=== PATIENT | female | born 1995 | race Caucasian/White ===

== ENCOUNTER 2017-05-11 11:57 | Emergency (ER) | payer OTHER ==
[2017-05-11 12:28] VITALS: BP 110/66; PULSE 87; TEMP 97.7; BMI 24.6
--- NOTE | 2017-05-11 13:10 | PDOC ---
History of Present Illness - General Chief Complaint: Pain Stated Complaint: ABDOMINAL PAIN Time Seen by Provider: 05/11/17 12:41 History Source: Patient Exam Limitations: No Limitations - History of Present Illness Initial Comments: 05/11/17 13:05 Patient here with complaints of lower abdominal pain, feelings of nauseousness, and wondering if she could potentially be . Denies dysuria, denies any bowel changes, denies any vaginal drainage or discharge. Occurred: reports: last week Severity: reports: mild Pain Location: reports: none, abdomen Modifying Factors: improves with: None Past History - Travel Traveled outside of the country in the last 30 days: No Close contact w/someone who was outside of country & ill: No - Past Medical History Allergies/Adverse Reactions: Allergies Allergy/AdvReac Type Severity Reaction Status Date / Time No Known Allergies Allergy Verified 05/11/17 12:24 Home Medications: Ambulatory Orders NK [No Known Home Medication] 05/11/17 Asthma: Yes Cancer: No Cardiac Disorders: No COPD: No Diabetes: No HTN: No Seizures: Yes (last seizure 2011) Thyroid Disease: No - Surgical History Appendectomy: Yes - Reproductive History (#): 4 Para: 1 Therapeutic (s) & number: Yes Spontaneous : 1 - Immunization History Immunization Up to Date: Yes - Suicide/Smoking/Psychosocial Hx Smoking History: Current every day smoker Have you smoked in the past 12 months: Yes Number of Cigarettes Smoked Daily: 3 If you are a former smoker, when did you quit?: 9 months ago Cigars Per Day: 0 Information on smoking cessation initiated: No Hx Alcohol Use: No Drug/Substance Use Hx: No Hx Substance Use Treatment: No Review of Systems - Review of Systems Able to Perform ROS?: Yes Is the patient limited Welsh proficient: Yes Constitutional: Yes: Symptoms Reported, See HPI, Malaise. No: Fever, Loss of Appetite HEENTM: No: Symptoms Reported Respiratory: Yes: See HPI. No: Symptoms reported Cardiac (ROS): No: Symptoms Reported ABD/GI: Yes: Symptoms Reported. No: Nausea Musculoskeletal: No: Symptoms Reported Integumentary: No: Symptoms Reported All Other Systems: Reviewed and Negative *Physical Exam - Vital Signs Last Vital Signs Temp Pulse Resp BP Pulse Ox 97.7 F 87 18 110/66 100 05/11/17 12:24 05/11/17 12:24 05/11/17 12:24 05/11/17 12:24 05/11/17 12:24 - Physical Exam General Appearance: Yes: Nourished, Appropriately Dressed. No: Apparent Distress, Mild Distress HEENT: positive: KACY, Normal ENT Inspection, TMs Normal, Pharynx Normal Neck: positive: Supple. negative: Tender Respiratory/Chest: positive: Lungs Clear Gastrointestinal/Abdominal: positive: Normal Bowel Sounds, Soft. negative: Tender, Distended, Guarding, Rebound, Tenderness Extremity: negative: Normal Capillary Refill Integumentary: positive: Normal Color, Dry, Warm, Pale Neurologic: positive: supervisory clerk II-XII NML intact, Fully Oriented, Alert, Normal Mood/ Affect, Normal Response, Motor Strength 5/5 *DC/Admit/Observation/Transfer Diagnosis at time of Disposition: Well adult health check - Discharge Dispostion Disposition: HOME Condition at time of disposition: Stable Admit: No - Referrals Referrals: Goldy Cortez MD [Primary Care Provider] - - Patient Instructions Additional Instructions: See DRIER AND EVAPORATOR OPERATOR doctor for discussion of control options - Post Discharge Activity Forms/Work/School Notes: Back to Work
[2017-05-11 13:25] LABS: HCG,QUALITATIVE URINE NEGATIVE; URINE APPEARANCE CLEAR; URINE BILIRUBIN NEGATIVE (NEGATIVE); URINE BLOOD NEGATIVE (NEGATIVE); URINE COLOR LTYELLOW; URINE GLUCOSE (UA) NEGATIVE (NEGATIVE); URINE KETONE NEGATIVE (NEGATIVE); URINE LEUK ESTERASE TRACE (NEGATIVE); URINE NITRITE NEGATIVE (NEGATIVE); URINE PROTEIN NEGATIVE (NEGATIVE)
[2017-05-11 13:30] LABS: EPI CELLS RARE /HPF (FEW); URINE BACTERIA RARE /hpf (NONE SEEN); URINE MUCUS FEW
== END 2017-05-11 14:30 | disposition home or self-care (01) ==
LOC: JERFT 11:57
DX: Z71.1 Person with feared health complaint in whom no diagnosis is made (principal); J45.909 Unspecified asthma, uncomplicated; Z86.69 Personal history of other diseases of the nervous system and sense organs; F17.210 Nicotine dependence, cigarettes, uncomplicated
CPT/HCPCS: 81003; 81015; 84703; 87086; 99281-25

== ENCOUNTER 2019-11-20 08:28 | Inpatient (IN) | payer OTHER ==
[2019-11-20] MEDS ORDERED: ELECTROLYTE-148 SOLN 1,000 ML IV SCH (09:15)
[2019-11-20] MEDS ORDERED: BENZOCAINE 28 GM HEMORRHOIDAL OINTMENT PR PRN (09:21)
[2019-11-20] MEDS ORDERED: BENZOCAINE 20% 57 GM BOTTLE TP PRN (09:21)
[2019-11-20] MEDS ORDERED: diphenhydrAMINE HCL 25 MG CAPSULE (FP) PO PRN (09:21)
[2019-11-20] MEDS ORDERED: METHYLERGONOVINE MALEATE 0.2 MG/1 ML AMP IM PRN (09:21)
[2019-11-20] MEDS ORDERED: IBUPROFEN 800 MG/8 ML IJ IVPB PRN (09:21)
[2019-11-20] MEDS ORDERED: WITCH HAZEL 50% (TUCKS) 40 PAD/JAR PAD TP PRN (09:21)
--- NOTE | 2019-11-20 09:25 | HP ---
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 Pulmonary: Yes: Asthma ...: 5 ...Para: 2 ...EDC by Dates: 11/25/19 - Past Surgical History Past Surgical History: Yes: Appendectomy, Hx Myomectomy: No Hx Transabdominal Cerclage: No - Smoking History Smoking history: Current every day smoker Have you smoked in the past 12 months: Yes Aproximately how many cigarettes per day: 3 If you are a former smoker, when did you quit?: 9 months ago - Alcohol/Substance Use Hx Alcohol Use: No History of Substance Use: reports: None - Social History Usual Living Arrangement: Yes: With Spouse History of Recent Travel: No Home Medications - Allergies Allergies/Adverse Reactions: Allergies Allergy/AdvReac Type Severity Reaction Status Date / Time No Known Allergies Allergy Verified 05/11/17 12:24 - Home Medications Home Medications: Ambulatory Orders Pnv 29-1 Tablet 1 tab PO DAILY 10/02/19 Physical Exam - Maternity Constitutional: Yes: Well Nourished Eyes: Yes: WNL HENT: Yes: WNL Neck: Yes: WNL Cardiovascular: Yes: WNL Lungs: Normal air movement (h/o asthma) - Abdominal Exam/OB Contractions: Yes Regularity: Regular Intensity: Moderate Monitor Mode: External Category: I Accelerations: Uniform Decelerations: None - Vaginal Exam/OB Dilatation (cm): 2 cm Amniotic Membrane Status: Intact Meconium: Light Station: -1 - Physical Exam Edema: No Problem List - Problems (1) Asthma Code(s): J45.909 - UNSPECIFIED ASTHMA, UNCOMPLICATED Qualifiers: Asthma severity: mild Asthma persistence: unspecified (2) 39 weeks gestation of Code(s): Z3A.39 - 39 WEEKS GESTATION OF Assessment/Plan previos c section at 39 weeks ,chaim; for repeat c section
[2019-11-20] MEDS ORDERED: OXYTOCIN 20 UNITS in 0.9% NS 20 UNIT/1,000 ML INFUS.BAG IV SCH (09:45)
[2019-11-20 09:46] LABS: BASO % 0.4 % (0-2.0); EOS % 0.7 % (0-4.5); HEMOGLOBIN 11.7 GM/dL (10.7-15.3); LYMPH % 25.1 % (8-40); MCH 32.6 pg (25.7-33.7); MCHC 33.5 g/dl (32.0-36.0); MEAN CELL VOLUME 97.2 fl (80-96); MEAN PLT VOLUME 8.1 fl (7.5-11.1); MONO % 8.6 % (3.8-10.2); NEUT % 65.2 % (42.8-82.8); PLATELET COUNT 258 K/MM3 (134-434); RDW 13.2 % (11.6-15.6); WHITE BLOOD COUNT 7.7 K/mm3 (4.0-10.0)
[2019-11-20 09:52] LABS: INR 0.95 (0.83-1.09); PROTHROMBIN TIME (PATIENT) 11.2 SEC (9.7-13.0)
[2019-11-20 09:55] LABS: ACTIVATED PTT 27.6 SECONDS (25.2-36.5)
[2019-11-20 09:59] VITALS: BMI 28.7
[2019-11-20] MEDS ORDERED: morphine SULFATE/PF 0.5 MG/ML (2cc Syringe - QUVA) EP ONE (10:04)
[2019-11-20] MEDS ORDERED: ONDANSETRON 4 MG/2 ML VIAL IVPUSH PRN (10:04)
[2019-11-20] MEDS ORDERED: ceFAZolin SODIUM 1 GM VIAL ONE (10:12)
[2019-11-20 10:13] LABS: BLOOD UREA NITROGEN 6.1 mg/dL (7-18); CALCIUM 8.6 mg/dL (8.5-10.1); CREATININE 0.4 mg/dL (0.55-1.3); POTASSIUM 3.8 mmol/L (3.5-5.1)
[2019-11-20] MEDS ORDERED: PHENYLEPHRINE HCL 10 MG/1 ML SINGLE DOSE VIAL ONE (10:30)
[2019-11-20] MEDS ORDERED: OXYTOCIN 10 UNITS/ML VIAL ONE (10:30)
--- NOTE | 2019-11-20 11:21 | OP ---
Operative Note - Note: Operative Date: 11/20/19 Pre-Operative Diagnosis: previous c section x 2 in labor Operation: repeat c section Findings: live baby girl; OA position; = 9-9; OVARIES AND TUBES WNL; WINDOW Post-Operative Diagnosis: Same as Pre-op Mother Repairer: Vicente Mcdonnell Anesthesia: Spinal Estimated Blood Loss (mls): 700 Operative Report Dictated: Yes
[2019-11-20] MEDS ORDERED: OXYTOCIN 20 UNITS in 0.9% NS 20 UNIT/1,000 ML INFUS.BAG IV ONE (11:27)
--- NOTE | 2019-11-20 15:26 | OP ---
DATE OF OPERATION: 11/20/2019 This patient is a 24-year-old 5, para 2, sections x2, at 39 weeks' gestation, in labor. PREOPERATIVE DIAGNOSIS: Intrauterine at term, previous section, in labor. POSTOPERATIVE DIAGNOSIS: Intrauterine at term, previous section, in labor. PROCEDURE: Repeat section through a previous Pfannenstiel incision. SURGEON: Khloe Pastrana MD SUPERVISING EDITOR NEWS REEL: YURY Rodas ANESTHESIA: Spinal by anesthesiologist. FINDINGS: Live baby girl in the occiput transverse position. Apgars 9, 9. Amniotic fluid was clear. Ovaries and fallopian tubes were within normal limits. ESTIMATED BLOOD LOSS: Was about 500 mL. DESCRIPTION OF PROCEDURE: The patient was taken to the operating room, was prepped and draped in the usual sterile fashion after a good level of spinal anesthesia was obtained. A Bowles catheter had been introduced into the bladder and was draining clear urine throughout the procedure. With the first knife and through a previous Pfannenstiel incision, an incision was made, and this incision was taken down through subcutaneous tissue into the fascia with the Bovie. The fascia was nicked in the midline, and this incision was extended laterally on both sides with the Bovie. The muscle was then from the fascia in the midline, both cephalad and caudad. The peritoneum was identified and entered under direct visualization, and this incision was extended cephalad and caudad. A lower angle retractor was then put in place to protect the bladder. It was noted that there was a large window in the lower uterine segment, then a low transverse incision was made in the lower uterine segments away from the window, and this incision was taken down into the uterine cavity. This incision was extended laterally on both sides. The amniotic bag was then ruptured of clear fluid, and the baby was then delivered from the occiput transverse position with fundal pressure atraumatically. The baby was suctioned. The umbilical cord was clamped and cut, and the baby was handed to the play therapist who assigned Apgars of 9 and 9. The placenta was then delivered manually. The uterus was then brought into the abdominal incision. The uterine cavity was then cleaned, with a clean lap pad, of residual membranes. The uterine incision was then closed, the first layer running locking suture of 0 Vicryl. Figure-of-8 was placed as a second layer. Hemostasis was checked, and it was satisfactory. The uterus was then repositioned into the pelvic cavity. The lateral gutters were suctioned of blood and fluid. Instrument count, sponge count, needle count was correct. The peritoneum was closed with chromic. The muscle was reapproximated with chromic. The fascia was closed with 0 Vicryl, and the skin was closed with 3-0 Vicryl. Steri-Strips were then applied. Sterile dressing was applied. Patient returned to recovery room in satisfactory condition. MD TAMI KNAPP/[id number]
[2019-11-20] MEDS: IBUPROFEN 600 MG TABLET (FP) PO PRN (20:39)
[2019-11-20] MEDS: ACETAMINOPHEN 325 MG TABLET (FP) PO PRN (20:40)
[2019-11-21] MEDS: IBUPROFEN 600 MG TABLET (FP) PO PRN ×5 (05:02→22:01)
[2019-11-21] MEDS: ACETAMINOPHEN 325 MG TABLET (FP) PO PRN ×3 (05:03→13:40)
[2019-11-21] MEDS: SIMETHICONE 80 MG TAB.CHEW (FP) PO PRN ×4 (08:36→22:05)
[2019-11-21 09:19] LABS: HEMATOCRIT 33.8 % (32.4-45.2); HEMOGLOBIN 11.5 GM/dL (10.7-15.3); MCH 33.3 pg (25.7-33.7); MCHC 33.9 g/dl (32.0-36.0); MEAN CELL VOLUME 98.2 fl (80-96); MEAN PLT VOLUME 8.4 fl (7.5-11.1); PLATELET COUNT 207 K/MM3 (134-434); RBC 3.44 M/mm3 (3.60-5.2); RDW 13.1 % (11.6-15.6); WHITE BLOOD COUNT 10.2 K/mm3 (4.0-10.0)
[2019-11-21] MEDS ORDERED: oxyCODONE HCL 5 MG TABLET PO PRN (09:21)
[2019-11-21] MEDS ORDERED: BISACODYL 10 MG SUPP.RECT PR PRN (09:22)
--- NOTE | 2019-11-21 12:00 | PN ---
Post Progress Note - Subjective Subjective: 24 yo Para 2 status post repeat , seen and evaluated. Doing well. Post Day: 1 Type of Delivery: Repeat C/S Vital Signs: Vital Signs Temperature 98.4 F 11/21/19 06:35 Pulse Rate 88 11/21/19 06:35 Respiratory Rate 20 11/21/19 06:35 Blood Pressure 104/72 11/21/19 06:35 O2 Sat by Pulse Oximetry (%) 99 11/20/19 23:46 Breast Exam: Yes: Soft Uterus: Yes: Fundus @ umbilicus Incision: Yes: Dressing dry and intact Abdomen/GI: Yes: Abdomen soft, Tolerating PO Lochia: Yes: Rubra Lochia, amount: Small Extremities: Yes: Calves non-tender Activity: Ambulating - Labs Labs: CBC WBC 10.2 K/mm3 (4.0-10.0) H 11/21/19 08:20 RBC 3.44 M/mm3 (3.60-5.2) L 11/21/19 08:20 Hgb 11.5 GM/dL (10.7-15.3) 11/21/19 08:20 Hct 33.8 % (32.4-45.2) 11/21/19 08:20 MCV 98.2 fl (80-96) H 11/21/19 08:20 MCH 33.3 pg (25.7-33.7) 11/21/19 08:20 MCHC 33.9 g/dl (32.0-36.0) 11/21/19 08:20 RDW 13.1 % (11.6-15.6) 11/21/19 08:20 Plt Count 207 K/MM3 (134-434) 11/21/19 08:20 MPV 8.4 fl (7.5-11.1) 11/21/19 08:20 Absolute Neuts (auto) 5.0 K/mm3 (1.5-8.0) 11/20/19 09:20 Neutrophils % 65.2 % (42.8-82.8) 11/20/19 09:20 Lymphocytes % 25.1 % (8-40) 11/20/19 09:20 Monocytes % 8.6 % (3.8-10.2) 11/20/19 09:20 Eosinophils % 0.7 % (0-4.5) 11/20/19 09:20 Basophils % 0.4 % (0-2.0) 11/20/19 09:20 Nucleated RBC % 0 % (0-0) 11/20/19 09:20 Assessment/Plan Status post repeat Ambulation Analgesia as needed Continue routine post op care
[2019-11-21] MEDS: oxyCODONE HCL 5 MG TABLET PO PRN (17:42)
[2019-11-22] MEDS: oxyCODONE HCL 5 MG TABLET PO PRN ×5 (02:02→23:27)
[2019-11-22] MEDS: IBUPROFEN 600 MG TABLET (FP) PO PRN ×4 (07:53→23:35)
[2019-11-22] MEDS: SIMETHICONE 80 MG TAB.CHEW (FP) PO PRN ×4 (07:55→23:32)
[2019-11-22] MEDS: ACETAMINOPHEN 325 MG TABLET (FP) PO PRN ×2 (09:28→23:28)
--- NOTE | 2019-11-22 09:53 | PN ---
Post Progress Note - Subjective Subjective: 24 yo Para 3, status post repeat , seen and evaluated. She c/o right shoulder pain. She has not moved her bowel yet. Post Day: 2 Type of Delivery: Repeat C/S Vital Signs: Vital Signs Temperature 97.9 F 11/21/19 21:30 Pulse Rate 87 11/21/19 21:30 Respiratory Rate 20 11/21/19 21:30 Blood Pressure 112/69 11/21/19 21:30 O2 Sat by Pulse Oximetry (%) 97 11/21/19 21:30 Breast Exam: Yes: Soft Uterus: Yes: Fundus Firm Incision: Yes: Other (Steri srips in place) Abdomen/GI: Yes: Abdomen soft, Tolerating PO Lochia: Yes: Rubra Lochia, amount: Small Extremities: Yes: Calves non-tender Activity: Ambulating - Labs Labs: CBC WBC 10.2 K/mm3 (4.0-10.0) H 11/21/19 08:20 RBC 3.44 M/mm3 (3.60-5.2) L 11/21/19 08:20 Hgb 11.5 GM/dL (10.7-15.3) 11/21/19 08:20 Hct 33.8 % (32.4-45.2) 11/21/19 08:20 MCV 98.2 fl (80-96) H 11/21/19 08:20 MCH 33.3 pg (25.7-33.7) 11/21/19 08:20 MCHC 33.9 g/dl (32.0-36.0) 11/21/19 08:20 RDW 13.1 % (11.6-15.6) 11/21/19 08:20 Plt Count 207 K/MM3 (134-434) 11/21/19 08:20 MPV 8.4 fl (7.5-11.1) 11/21/19 08:20 Absolute Neuts (auto) 5.0 K/mm3 (1.5-8.0) 11/20/19 09:20 Neutrophils % 65.2 % (42.8-82.8) 11/20/19 09:20 Lymphocytes % 25.1 % (8-40) 11/20/19 09:20 Monocytes % 8.6 % (3.8-10.2) 11/20/19 09:20 Eosinophils % 0.7 % (0-4.5) 11/20/19 09:20 Basophils % 0.4 % (0-2.0) 11/20/19 09:20 Nucleated RBC % 0 % (0-0) 11/20/19 09:20 Problem List - Problems (1) Status post repeat low transverse section Problems reviewed: Yes Code(s): Z98.891 - HISTORY OF UTERINE SCAR FROM PREVIOUS SURGERY Assessment/Plan Status post repeat Ambulation Analgesia as needed Rectal suppository Continue post op care
--- NOTE | 2019-11-22 10:53 | PN ---
Post Progress Note Post Day: 1 Type of Delivery: Repeat C/S Vital Signs: Vital Signs Temperature 97.9 F 11/21/19 21:30 Pulse Rate 87 11/21/19 21:30 Respiratory Rate 20 11/21/19 21:30 Blood Pressure 112/69 11/21/19 21:30 O2 Sat by Pulse Oximetry (%) 97 11/21/19 21:30 Uterus: Yes: Fundus Firm, Fundus below umbilicus, Non-tender Incision: Yes: Sutures intact Abdomen/GI: Yes: Abdomen soft, Passing flatus, Tolerating PO Lochia: Yes: Serosa Lochia, amount: Small Extremities: Yes: Calves non-tender Perineum: Yes: Intact Activity: Ambulating - Labs Labs: CBC WBC 10.2 K/mm3 (4.0-10.0) H 11/21/19 08:20 RBC 3.44 M/mm3 (3.60-5.2) L 11/21/19 08:20 Hgb 11.5 GM/dL (10.7-15.3) 11/21/19 08:20 Hct 33.8 % (32.4-45.2) 11/21/19 08:20 MCV 98.2 fl (80-96) H 11/21/19 08:20 MCH 33.3 pg (25.7-33.7) 11/21/19 08:20 MCHC 33.9 g/dl (32.0-36.0) 11/21/19 08:20 RDW 13.1 % (11.6-15.6) 11/21/19 08:20 Plt Count 207 K/MM3 (134-434) 11/21/19 08:20 MPV 8.4 fl (7.5-11.1) 11/21/19 08:20 Absolute Neuts (auto) 5.0 K/mm3 (1.5-8.0) 11/20/19 09:20 Neutrophils % 65.2 % (42.8-82.8) 11/20/19 09:20 Lymphocytes % 25.1 % (8-40) 11/20/19 09:20 Monocytes % 8.6 % (3.8-10.2) 11/20/19 09:20 Eosinophils % 0.7 % (0-4.5) 11/20/19 09:20 Basophils % 0.4 % (0-2.0) 11/20/19 09:20 Nucleated RBC % 0 % (0-0) 11/20/19 09:20 Assessment/Plan doing well,
[2019-11-22] MEDS ORDERED: SENNOSIDES/DOCUSATE COMBO (SENNA PLUS) TABLET (UD) PO PRN (22:00)
[2019-11-23] MEDS: oxyCODONE HCL 5 MG TABLET PO PRN ×2 (04:05→09:02)
[2019-11-23] MEDS: IBUPROFEN 600 MG TABLET (FP) PO PRN ×3 (04:06→13:37)
[2019-11-23] MEDS: ACETAMINOPHEN 325 MG TABLET (FP) PO PRN ×3 (04:07→13:38)
[2019-11-23 08:30] LABS: HEMATOCRIT 34.7 % (32.4-45.2); HEMOGLOBIN 11.7 GM/dL (10.7-15.3); MCH 32.9 pg (25.7-33.7); MCHC 33.7 g/dl (32.0-36.0); MEAN CELL VOLUME 97.7 fl (80-96); MEAN PLT VOLUME 7.7 fl (7.5-11.1); PLATELET COUNT 249 K/MM3 (134-434); RBC 3.55 M/mm3 (3.60-5.2); RDW 13.2 % (11.6-15.6); WHITE BLOOD COUNT 7.1 K/mm3 (4.0-10.0)
[2019-11-23 11:01] VITALS: BP 107/71; PULSE 75; TEMP 98
--- NOTE | 2019-11-23 13:24 | DS ---
Physical Exam-MEDICAL LEGAL INVESTIGATOR Vital Signs: Vital Signs Temperature 98.0 F 11/23/19 10:00 Pulse Rate 75 11/23/19 10:00 Respiratory Rate 18 11/23/19 10:00 Blood Pressure 107/71 11/23/19 10:00 O2 Sat by Pulse Oximetry (%) 97 11/22/19 22:00 Constitutional: Yes: Well Nourished, No Distress Respiratory: Yes: WNL Gastrointestinal: Yes: WNL, Soft ....Post : Yes: Uterus firm, Uterus non-tender Musculoskeletal: Yes: WNL Extremities: Yes: WNL Edema: No Labs: CBC, BMP 11/23/19 08:18 11/20/19 09:20 Delivery - Delivery Type of Anesthesia: Spinal Episiotomy/Laceration: None EBL (cc): 700 Delivery, Single - Stages of Labor Date 1st Stage Initiatied: 11/20/19 Time 1st Stage Initiated: 02:00 Date of Delivery: 11/20/19 Time of Delivery: 10:34 Time Placenta Delivered: 10:35 Placenta: Yes: Manual Removal - Condition of Infant Powerplant Operator/Legislative Aide Present: Yes Name: Fawn Martinez Gender: Female Weight: 6 lb 10 oz Position: OT Total Hours ROM (Hrs/Mins): 0hrs 2min - 1 Minute Total Score: 9 5 Minutes Total Score: 9 - [place] Feeding Plan Initial Plan: Elected not to breastfeed exclusively throughout hospitalization Discharge Summary Problems reviewed: Yes Reason For Visit: C SECTION Current Active Problems 39 weeks gestation of (Acute) Status post repeat low transverse section (Acute) Procedures: Principal: repeat Section Condition: Good - Instructions Diet, Activity, Other Instructions: Regular diet No driving, no lifting x 4 weeks F/U with MD in 1 week Referrals: Jessie Almaraz MD [Staff Physician] - Disposition: HOME - Home Medications Comprehensive Discharge Medication List: Ambulatory Orders Pnv 29-1 Tablet 1 tab PO DAILY 10/02/19 Oxycodone HCl/Acetaminophen [Percocet 5-325 mg Tablet] 1 - 2 tab PO Q4H #20 ta blet MDD 6 11/23/19
--- NOTE | 2019-11-24 14:30 | PATH ---
Surgical Pathology Report Patient Name: CLINTON SCHWARTZ Med. Rec. #: [id number] /Age/Gender: 1995 (Age: 24) / F Account: [id number] Location: [facility] OBS/TABULATING CLERK Taken: 11/20/2019 Received: 11/23/2019 Reported: 11/24/2019 Physicians: Jaxon Page M.D. Specimen(s) Received PLACENTA Clinical History , history of asthma and seizures Previous x2 Final Diagnosis PLACENTA: THIRD TRIMESTER PLACENTA WITH FOCAL INCREASED PERIVILLOUS FIBRIN DEPOSITION. TRIVASCULAR CORD. MEMBRANES WITH NO DIAGNOSTIC ABNORMALITIES. Electronically Signed Dhaval Mata M.D. Gross Description The specimen is received fresh labeled placenta and is a 378 gram, 15.0 x 13.5 x 2.6 cm. placenta with attached membranes and umbilical cord. The attached membranes are armenta, translucent with focal opacities and insert marginally. The umbilical cord measures 27 cm. in length and averages 1 cm. in diameter. The cord inserts eccentrically, 1 cm. to the nearest margin. No true knots or strictures are identified. Cut surface of the umbilical cord reveals 3 vessels. The surface is almonte blue with abundant fibrin deposition and appropriate caliber vessels. The maternal surface is red-brown and intact. Sectioning reveals red-brown, spongy parenchyma. No lesions are identified. Stone Finisher sections are submitted in three cassettes as follows: 1- membrane rolls and umbilical cord; 2-3- full thickness sections of placenta. /11/23/2019 [facility]2019
== END 2019-11-23 14:30 | disposition home or self-care (01) | DRG 540 ==
LOC: JDEL 08:28 → JLDR 08:40 → J3W 12:30
PROVIDERS: ADMIT Obstetrics & Gynecology; ATTEND Obstetrics & Gynecology
PROC: 10D00Z1 Extraction of Products of Conception, Low, Open Approach (ICD-10-PCS; principal; 2019-11-20)
DX: O82 Encounter for cesarean delivery without indication (principal); Z37.0 Single live birth; Z3A.39 39 weeks gestation of pregnancy; Z98.891 History of uterine scar from previous surgery; J45.909 Unspecified asthma, uncomplicated; Z86.69 Personal history of other diseases of the nervous system and sense organs
CPT/HCPCS: 36415; 80048; 85025; 85027; 85610; 85730; 86780; 86850; 86900; 86901; 88307-TC; U0003

== ENCOUNTER 2021-02-05 15:06 | Emergency (ER) | payer OTHER ==
[2021-02-05 15:20] VITALS: BP 103/66; PULSE 94; TEMP 97.7; BMI 26.2
[2021-02-05] MEDS ORDERED: FAMOTIDINE 20 MG/50 ML IVPB 20 MG/50 ML MG IVPB ONE ×2 (16:32→16:47)
[2021-02-05] MEDS ORDERED: ONDANSETRON 4 MG/2 ML VIAL IVPUSH ONE (16:32)
[2021-02-05] MEDS ORDERED: SODIUM CHLORIDE 0.9% 500 ML INFUS.BAG IV ONE (16:32)
[2021-02-05] MEDS ORDERED: KETOROLAC TROMETHAMINE 30 MG/1 ML VIAL IVPUSH ONE (16:47)
[2021-02-05] MEDS ORDERED: ONDANSETRON 4 MG/2 ML VIAL ONE (16:47)
[2021-02-05 16:50] LABS: BASO % 0.5 % (0-2.0); EOS % 0.1 % (0-4.5); HEMOGLOBIN 13.6 GM/dL (10.7-15.3); LYMPH % 8.3 % (8-40); MCH 32.8 pg (25.7-33.7); MEAN CELL VOLUME 96.2 fl (80-96); MEAN PLT VOLUME 7.5 fl (7.5-11.1); MONO % 3.2 % (3.8-10.2); NEUT % 87.9 % (42.8-82.8); PLATELET COUNT 351 10^3/uL (134-434); RBC 4.15 M/mm3 (3.60-5.2); WHITE BLOOD COUNT 13.5 K/mm3 (4.0-10.0)
[2021-02-05] MEDS ORDERED: KETOROLAC TROMETHAMINE 30 MG/1 ML VIAL ONE (16:59)
[2021-02-05 17:12] LABS: CALCIUM 9.3 mg/dL (8.5-10.1)
[2021-02-05 17:13] LABS: ALBUMIN 4.4 g/dl (3.4-5.0); BLOOD UREA NITROGEN 14.1 mg/dL (7-18)
[2021-02-05 17:16] LABS: CREATININE 0.6 mg/dL (0.55-1.3)
[2021-02-05 17:17] LABS: BILIRUBIN,TOTAL 0.6 mg/dL (0.2-1); TOT PROT 8.3 g/dl (6.4-8.2)
[2021-02-05 18:34] LABS: HCG,QUALITATIVE URINE Negative
[2021-02-05 18:35] LABS: EPI CELLS 29 /uL (0-25.1); HYALINE CASTS 2 /uL (0-3.1); PH,URINE 6.5 (5.0-8.0); URINE APPEARANCE CLEAR; URINE BACTERIA 370 /uL (0-1359); URINE BILIRUBIN NEGATIVE (NEGATIVE); URINE COLOR YELLOW; URINE GLUCOSE (UA) NEGATIVE (NEGATIVE); URINE KETONE 4+ (NEGATIVE); URINE LEUK ESTERASE NEGATIVE (NEGATIVE); URINE NITRITE NEGATIVE (NEGATIVE); URINE PROTEIN 1+ (NEGATIVE); URINE WBC 15 /uL (0-25.8)
[2021-02-05 18:55] LABS: URINE RBC 51 /uL (0-23.9)
== END 2021-02-05 19:23 | disposition home or self-care (01) ==
LOC: JER 15:06 → JERFT 15:06
PROC: 3E033NZ Introduction of Analgesics, Hypnotics, Sedatives into Peripheral Vein, Percutaneous Approach (ICD-10-PCS; principal; 2021-02-05)
PROC: 3E033GC Introduction of Other Therapeutic Substance into Peripheral Vein, Percutaneous Approach (ICD-10-PCS; 2021-02-05)
PROC: 3E0333Z Introduction of Anti-inflammatory into Peripheral Vein, Percutaneous Approach (ICD-10-PCS; 2021-02-05)
DX: R11.2 Nausea with vomiting, unspecified (principal); S61.306A Unspecified open wound of right little finger with damage to nail, initial encounter; R10.9 Unspecified abdominal pain
CPT/HCPCS: 36415; 80053; 81003; 84703; 85025; 99284-25

== ENCOUNTER 2021-05-15 16:34 | Emergency (ER) | payer OTHER ==
[2021-05-15 17:07] VITALS: BP 126/66; PULSE 100; TEMP 97.9; BMI 30.9
[2021-05-15] MEDS ORDERED: IBUPROFEN 400 MG TABLET (FP) PO ONE ×3 (17:34→18:14)
[2021-05-17 08:10] LABS: SARS-CoV-2 NAA Not Detected (Not Detected)
== END 2021-05-15 18:16 | disposition home or self-care (01) ==
LOC: JER 16:34
DX: J45.909 Unspecified asthma, uncomplicated (principal); J06.9 Acute upper respiratory infection, unspecified
CPT/HCPCS: 87804; 99283-25; C9803; U0003; U0005

== ENCOUNTER 2022-01-31 15:05 | Emergency (ER) | payer OTHER ==
[2022-01-31 16:06] VITALS: BP 99/69; PULSE 85; RESP 18; TEMP 98.1; BMI 27.3
[2022-01-31] MEDS ORDERED: CLINDAMYCIN HCL 300 MG CAPSULE PO ONE (17:13)
[2022-01-31] MEDS ORDERED: IBUPROFEN 600 MG TABLET (FP) PO ONE ×2 (17:13→17:30)
[2022-01-31] MEDS ORDERED: CLINDAMYCIN HCL 150 MG CAPSULE (FP) ONE (17:31)
== END 2022-01-31 18:36 | disposition home or self-care (01) ==
LOC: JERFT 15:05 → JER 15:05 → JERFT 18:36
DX: N61.1 Abscess of the breast and nipple (principal); L03.313 Cellulitis of chest wall
CPT/HCPCS: 99283-25

== ENCOUNTER 2022-12-08 12:49 | Emergency (ER) | payer OTHER ==
[2022-12-08 13:09] VITALS: BP 105/73; PULSE 109; RESP 20; TEMP 97.8; BMI 25.4
[2022-12-08] MEDS ORDERED: ALBUTEROL SO4 2.5/IPRATROPIUM 0.5 INH SOL 3 ML VIAL.NEB. NEB ONE ×2 (15:19→15:25)
== END 2022-12-08 16:27 | disposition home or self-care (01) ==
LOC: JERFT 12:49 → JER 12:49 → JERFT 16:27
PROC: 3E0F7GC Introduction of Other Therapeutic Substance into Respiratory Tract, Via Natural or Artificial Opening (ICD-10-PCS; principal; 2022-12-08)
DX: U07.1 COVID-19 (principal); R06.02 Shortness of breath; R05.9 Cough, unspecified
CPT/HCPCS: 0241U-QW; 71046-TC-FY; 99284-25

== ENCOUNTER 2023-10-03 00:30 | Emergency (ER) | payer OTHER ==
[2023-10-03 00:40] VITALS: BP 123/70; PULSE 90; RESP 18; TEMP 98.4; BMI 29.2
[2023-10-03] MEDS ORDERED: ACETAMINOPHEN 325 MG TABLET (FP) ONE (02:04)
[2023-10-03] MEDS ORDERED: DIPHTH,PERTUSS(ACELL),TET 0.5 ML DISP.SYRIN IM ONE (02:04)
[2023-10-03] MEDS: DIPHTH,PERTUSS(ACELL),TET 0.5 ML DISP.SYRIN IM ONE (02:07)
[2023-10-03] MEDS: ACETAMINOPHEN 325 MG TABLET (FP) PO ONE (02:07)
== END 2023-10-03 04:42 | disposition home or self-care (01) ==
LOC: JER 00:30
PROC: 0CQ0XZZ Repair Upper Lip, External Approach (ICD-10-PCS; principal; 2023-10-03)
PROC: 3E0234Z Introduction of Serum, Toxoid and Vaccine into Muscle, Percutaneous Approach (ICD-10-PCS; 2023-10-03)
DX: S01.511A Laceration without foreign body of lip, initial encounter (principal); M79.642 Pain in left hand; M79.645 Pain in left finger(s); V28.49XA Other motorcycle driver injured in noncollision transport accident in traffic accident, initial encounter; Z23 Encounter for immunization
CPT/HCPCS: 12011; 70450-TC; 70486-TC; 72125-TC; 73130-TC-LT-FY; 90471; 90715; 99284-25

== ENCOUNTER 2023-11-22 10:30 | Emergency (ER) | payer OTHER ==
[2023-11-22 10:35] VITALS: BP 124/80; PULSE 81; RESP 18; TEMP 98; BMI 28.9
[2023-11-22] MEDS ORDERED: CYCLOBENZAPRINE HCL 10 MG TABLET (FP) ONE (11:18)
[2023-11-22] MEDS ORDERED: IBUPROFEN 600 MG TABLET (FP) PO ONE (11:18)
[2023-11-22] MEDS ORDERED: LIDOCAINE 4% PATCH TP ONE (11:18)
[2023-11-22] MEDS ORDERED: ACETAMINOPHEN 500 MG TABLET (FP) ONE (11:18)
[2023-11-22] MEDS: IBUPROFEN 600 MG TABLET (FP) PO ONE (11:19)
[2023-11-22] MEDS: LIDOCAINE 4% PATCH TP ONE (11:19)
[2023-11-22] MEDS: ACETAMINOPHEN 500 MG TABLET (FP) PO ONE (11:19)
[2023-11-22] MEDS: CYCLOBENZAPRINE HCL 10 MG TABLET (FP) PO ONE (11:19)
[2023-11-22 14:46] LABS: HIV INTERPRETATION NEGATIVE (NEGATIVE)
[2023-11-22] MEDS ORDERED: LIDOCAINE PATCH REMOVAL MC SCH (22:00)
== END 2023-11-22 11:57 | disposition home or self-care (01) ==
LOC: JERFT 10:30
DX: S20.211A Contusion of right front wall of thorax, initial encounter (principal); S99.922A Unspecified injury of left foot, initial encounter; Y04.0XXA Assault by unarmed brawl or fight, initial encounter
CPT/HCPCS: 36415; 71046-TC-FY; 73630-TC-LT; 86803; 87389; 99284-25

== ENCOUNTER 2024-01-29 05:28 | Day surgery (SDC) | payer OTHER ==
[2024-01-29] MEDS ORDERED: ACETAMINOPHEN INJECTION 100 ML ONE (06:07)
[2024-01-29] MEDS: ACETAMINOPHEN 1000 MG/100 ML BAG IVPB ONE (06:21)
[2024-01-29 06:34] LABS: BASO % 0.9 % (0-2.0); EOS % 2.3 % (0-4.5); HEMATOCRIT 40.5 % (32.4-45.2); HEMOGLOBIN 13.4 GM/dL (10.7-15.3); MCH 32.6 pg (25.7-33.7); MCHC 33.2 g/dl (32.0-36.0); MEAN CELL VOLUME 98.1 fl (80-96); MEAN PLT VOLUME 7.8 fl (7.5-11.1); MONO % 7.8 % (3.8-10.2); PLATELET COUNT 298 10^3/uL (134-434); RBC 4.13 M/mm3 (3.60-5.2); WHITE BLOOD COUNT 5.6 K/mm3 (4.0-10.0)
[2024-01-29 08:05] LABS: POTASSIUM 4.9 mmol/L (3.5-5.1)
[2024-01-29 08:07] LABS: CALCIUM 8.9 mg/dL (8.5-10.1)
[2024-01-29 08:08] LABS: ALBUMIN 3.7 g/dl (3.4-5.0); BLOOD UREA NITROGEN 17.5 mg/dL (7-18)
[2024-01-29 08:11] LABS: CREATININE 0.5 mg/dL (0.55-1.3)
[2024-01-29 08:12] LABS: BILIRUBIN,TOTAL 0.5 mg/dL (0.2-1); TOT PROT 7.2 g/dl (6.4-8.2)
[2024-01-29] MEDS ORDERED: morphine SULFATE 4 MG/ML VIAL ONE (12:46)
[2024-01-29] MEDS ORDERED: MIDAZOLAM HCL 2 MG/2 ML SINGLE DOSE VIAL ONE (13:00)
[2024-01-29] MEDS ORDERED: LIDOCAINE HCL/PF 2% SDV 5ML VIAL ONE (13:00)
[2024-01-29] MEDS ORDERED: SUCCINYLCHOLINE CHLORIDE 200 MG/10 ML SYRINGE ONE (13:00)
[2024-01-29] MEDS ORDERED: ROCURONIUM BROMIDE 50 MG/5 ML SYRINGE ONE (13:00)
[2024-01-29] MEDS ORDERED: PROPOFOL 20 ML ONE (13:00)
[2024-01-29] MEDS: SODIUM CHLORIDE 1,000 ML IV STA (13:01)
[2024-01-29] MEDS: morphine CARPU-JECT 4 MG/1 ML DISP.SYRIN IVPUSH ONE (13:01)
[2024-01-29] MEDS ORDERED: BUPIVACAINE HCL/PF 0.25% (2.5MG/ML) 10 ML VIAL ONE (13:05)
[2024-01-29] MEDS ORDERED: HEPARIN NA (PORCINE) 5,000 UNITS/ML 1ML VIAL ONE (13:05)
[2024-01-29] MEDS ORDERED: cefOXitin SODIUM 2 GM VIAL (RESTRICTED TO ID) IVPB ONE (13:05)
[2024-01-29] MEDS ORDERED: ACETAMINOPHEN 1000 MG/100 ML BAG IVPB PRN (13:30)
[2024-01-29] MEDS: cefOXitin SODIUM 2 GM VIAL (RESTRICTED TO ID) IVPB ONE (13:55)
[2024-01-29] MEDS: BUPIVACAINE HCL/PF 0.25% (2.5MG/ML) 10 ML VIAL IJ ONE ×3 (14:13)
[2024-01-29] MEDS ORDERED: SUGAMMADEX SODIUM 200 MG/2 ML VIAL ONE (14:41)
[2024-01-29] MEDS ORDERED: oxyCODONE HCL 5 MG TABLET PO PRN (16:04)
[2024-01-29] MEDS: LACTATED RINGERS SOLUTION 1,000 ML IV SCH (16:30)
[2024-01-29] MEDS ORDERED: oxyCODONE HCL 5 MG TABLET ONE (17:19)
[2024-01-29] MEDS ORDERED: ONDANSETRON 4 MG/2 ML VIAL ONE (17:58)
[2024-01-29] MEDS: ONDANSETRON 4 MG/2 ML VIAL IVPUSH PRN (18:09)
[2024-01-29 19:02] VITALS: RESP 20
[2024-01-29] MEDS: KETOROLAC TROMETHAMINE 30 MG/1 ML VIAL IVPUSH SCH (19:50)
[2024-01-29 20:01] VITALS: BMI 31.1
[2024-01-29] MEDS: oxyCODONE HCL 5 MG TABLET PO PRN (20:31)
[2024-01-29] MEDS: ACETAMINOPHEN 1000 MG/100 ML BAG IVPB PRN (20:32)
[2024-01-29 21:09] LABS: INR 1.05 (0.83-1.09); PROTHROMBIN TIME (PATIENT) 12.1 SEC (9.7-13.0)
[2024-01-30 08:35] LABS: BASO % 0.2 % (0-2.0); EOS % 0.1 % (0-4.5); HEMATOCRIT 38.8 % (32.4-45.2); HEMOGLOBIN 12.6 GM/dL (10.7-15.3); LYMPH % 16.9 % (8-40); MCH 31.8 pg (25.7-33.7); MCHC 32.4 g/dl (32.0-36.0); MEAN PLT VOLUME 8.4 fl (7.5-11.1); MONO % 6.8 % (3.8-10.2); PLATELET COUNT 294 10^3/uL (134-434); RBC 3.96 M/mm3 (3.60-5.2); RDW 13.3 % (11.6-15.6)
[2024-01-30 09:00] LABS: POTASSIUM 3.8 mmol/L (3.5-5.1)
[2024-01-30 09:05] LABS: ALBUMIN 3.8 g/dl (3.4-5.0); BLOOD UREA NITROGEN 6.8 mg/dL (7-18); CALCIUM 9.1 mg/dL (8.5-10.1); MAGNESIUM 1.8 mg/dL (1.8-2.4)
[2024-01-30 09:09] LABS: CREATININE 0.5 mg/dL (0.55-1.3)
[2024-01-30 09:10] LABS: BILIRUBIN,TOTAL 0.8 mg/dL (0.2-1); TOT PROT 7.1 g/dl (6.4-8.2)
[2024-01-30 12:25] VITALS: BP 108/70; PULSE 76; TEMP 98.2
== END 2024-01-30 13:23 | disposition home or self-care (01) ==
LOC: JER 05:28 → JERBED 12:50 → UNDOADMIN 12:50 → SUATTDRO 13:28 → JASUSAT 13:28 → J8W 19:02 → JASUSAT 01-30 13:23
PROVIDERS: ATTEND Nurse Practitioner Family
PROC: 3E03329 Introduction of Other Anti-infective into Peripheral Vein, Percutaneous Approach (ICD-10-PCS; 2024-01-29)
PROC: 3E0333Z Introduction of Anti-inflammatory into Peripheral Vein, Percutaneous Approach (ICD-10-PCS; 2024-01-29)
PROC: 3E033NZ Introduction of Analgesics, Hypnotics, Sedatives into Peripheral Vein, Percutaneous Approach (ICD-10-PCS; 2024-01-29)
PROC: 3E0337Z Introduction of Electrolytic and Water Balance Substance into Peripheral Vein, Percutaneous Approach (ICD-10-PCS; 2024-01-29)
PROC: 3E033NZ Introduction of Analgesics, Hypnotics, Sedatives into Peripheral Vein, Percutaneous Approach (ICD-10-PCS; principal; 2024-01-29 17:45)
DX: K80.20 Calculus of gallbladder without cholecystitis without obstruction (principal); R10.11 Right upper quadrant pain; R10.13 Epigastric pain
CPT/HCPCS: 36415; 76705-TC; 80053; 83690; 83735; 84703; 85025; 85610; 88304-TC; 94760; 99285-25; J0131; J1644